=== PATIENT | female | born 1970 ===

== ENCOUNTER 2017-02-22 10:28 | Observation (INO) | payer OTHER ==
[2017-02-22] MEDS ORDERED: Albuterol-Ipratrop 3 mg / 0.5 (3 ml) UD INH STA ×2 (11:42→20:33)
--- NOTE | 2017-02-22 11:44 | ED PDOC ---
HPI: SOB/CHF/COPD Time Seen by Provider: 02/22/17 10:32 Chief Complaint (Nursing): Shortness Of Breath History Per: Patient History/Exam Limitations: no limitations Onset/Duration Of Symptoms: Gradual Current Symptoms Are (Timing): Still Present Severity: Moderate Associated Symptoms: Productive Cough. denies: Fever, Chills, Chest Pain, Heart Racing, Leg/Calf Pain, Dizziness, Light-headedness, Anxiety Recently: Treated By A Physician (placed on amoxicillin) Additional Complaint(s): pt. into ER c/o SOB and productive cough x 1 week. states SOB has become worse since this morning. denies any chest pain. pt also states she has been having green nasal discharge. states she was seen by her pmd yesterday and started on amoxicillin. Past Medical History Reviewed: Historical Data, Nursing Documentation, Vital Signs Vital Signs: Last Vital Signs Temp 98.7 F 02/22/17 12:15 Pulse 80 02/22/17 12:15 Resp 19 02/22/17 12:15 BP 126/78 02/22/17 12:15 Pulse Ox 98 02/22/17 12:15 - Medical History PMH: Bronchitis, Chronic Kidney Disease - Family History Family History: States: Unknown Family Hx - Living Arrangements Living Arrangements: With Family - Social History Current smoker - smoking cessation education provided: No - Home Medications Home Medications: Ambulatory Orders Medication Instructions Recorded Amoxicillin [Amoxil 500 mg Cap] 500 mg PO TID 02/22/17 Atorvastatin [Lipitor] 20 mg PO DAILY 02/22/17 Ergocalciferol (Vitamin D2) 50,000 unit PO Q14D 02/22/17 [Vitamin D2] Iron Ps Cmplx/Vit B12/FA [Ferrex 1 cap PO HS 02/22/17 150 Forte Capsule] Multivitamin/Iron/Folic Acid 1 tab PO DAILY 02/22/17 [Centrum Complete Multivit Tab] Promethazine [Phenergan Syrup] 5 ml PO Q6H PRN 02/22/17 Spironolactone [Aldactone] 12.5 mg PO DAILY 02/22/17 - Allergies Allergies/Adverse Reactions: Allergies Allergy/AdvReac Type Severity Reaction Status Date / Time No Known Allergies Allergy Verified 02/22/17 10:32 Review of Systems ROS Statement: Except As Marked, All Systems Reviewed And Found Negative Constitutional: Negative for: Fever, Chills Cardiovascular: Negative for: Chest Pain, Palpitations Respiratory: Positive for: Cough, Shortness of Breath, Sputum (green). Negative for: SOB with Exertion, Wheezing Gastrointestinal: Negative for: Nausea, Vomiting, Abdominal Pain Skin: Negative for: Rash Neurological: Negative for: Weakness, Numbness Physical Exam - Reviewed Nursing Documentation Reviewed: Yes Vital Signs Reviewed: Yes - Physical Exam Appears: Positive for: Uncomfortable Head Exam: Positive for: ATRAUMATIC, NORMAL INSPECTION, NORMOCEPHALIC Eye Exam: Positive for: Normal appearance Neck: Positive for: Normal, Painless ROM, Supple Cardiovascular/Chest: Positive for: Regular Rate, Rhythm, Chest Non Tender. Negative for: Edema, Gallop, Murmur, Bradycardia, Tachycardia Respiratory: Positive for: Wheezing (mild scattered). Negative for: Decreased Breath Sounds, Accessory Muscle Use, Crackles, Rales, Rhonchi, Stridor, Respiratory Distress Pulses-Radial (L): 2+ Pulses-Radial (R): 2+ Gastrointestinal/Abdominal: Positive for: Normal Exam, Bowel Sounds, Soft. Negative for: Tenderness Extremity: Positive for: Normal ROM. Negative for: Tenderness, Pedal Edema, Calf Tenderness, Deformity, Swelling Neurologic/Psych: Positive for: Alert, wire weaver II-XII, Oriented, Mood/Affect (calm) . Negative for: Motor/Sensory Deficits, Facial Droop - Laboratory Results Result Diagrams: 02/22/17 11:56 02/22/17 11:56 - ECG O2 Sat by Pulse Oximetry: 99 Pulse Ox Interpretation: Normal - Radiology X-Ray Interpretation: Infiltrates (rml moderate institital changes nml cardiac and mediasitnum border) - Progress ED Course And Treament: vq scan low prob for pe. bridget ladmit to obs per Dr hernandez Re-evaluation Time: 15:00 Condition: Improved Disposition - Clinical Impression Clinical Impression: Chronic renal failure, Pneumonia - Patient ED Disposition Is Patient to be Admitted: Yes Counseled Patient/Family Regarding: Studies Performed, Diagnosis - Disposition Disposition Time: 15:00 Condition: STABLE Forms: [facility] (Amharic) - Pt Status Changed To: Hospital Disposition Of: Observation - POA Present On Arrival: None
[2017-02-22 12:00] LABS: BASO # 0.1 K/uL (0.0-0.2); BASO % 0.4 % (0.0-2.0); EOS # 0.3 K/uL (0.0-0.7); EOS % 2.1 % (0.0-4.0); HEMATOCRIT 35.4 % (34.0-47.0); LYMPH % 16.1 % (20.0-40.0); MEAN CELL VOLUME 84.3 fl (81.0-99.0); MEAN CORPUSCULAR HGB CONC 33.3 g/dL (33.0-37.0); MEAN PLATELET VOLUME 9.4 fl (7.2-11.7); MONO # 0.5 K/uL (0.0-0.8); MONO % 3.7 % (0.0-10.0); NEUT # 9.6 K/uL (1.8-7.0); NEUT % 77.7 % (50.0-75.0); RED CELL DISTRIBUTION WIDTH 14.5 % (11.5-14.5); WHITE BLOOD COUNT 12.4 K/uL (4.8-10.8)
[2017-02-22 12:11] LABS: ALB/GLOB RATIO 1.1 (1.0-2.1); ALKALINE PHOSPHATASE 104 U/L (38-126); ALT/SGPT 30 U/L (9-52); AST/SGOT 18 U/L (14-36); BILIRUBIN,TOTAL 0.5 mg/dl (0.2-1.3); BLOOD UREA NITROGEN 40 mg/dl (7-17); CALCIUM 9.3 mg/dL (8.4-10.2); CARBON DIOXIDE 20 mmol/L (22-30); CHLORIDE 108 mmol/L (98-107); GFR AFRICAN-AMERICAN 12; GLUCOSE,RANDOM 91 mg/dL (65-105); POTASSIUM 3.9 MMOL/L (3.6-5.0); SODIUM 139 mmol/l (132-148); TOTAL PROTEIN 7.7 G/DL (6.3-8.2)
--- NOTE | 2017-02-22 12:59 | RAD ---
HISTORY: sob COMPARISON: 08/19/2008 TECHNIQUE: Chest PA and lateral FINDINGS: LUNGS: No active pulmonary disease. PLEURA: No significant pleural effusion identified. No pneumothorax apparent. CARDIOVASCULAR: Normal. OSSEOUS STRUCTURES: No significant abnormalities. VISUALIZED UPPER ABDOMEN: Normal. OTHER FINDINGS: None. IMPRESSION: No active disease.
[2017-02-22] MEDS ORDERED: Azithromycin 500 MG IV IVPB ONE (16:35)
--- NOTE | 2017-02-22 16:59 | NM ---
COMPARISON: Not available TECHNIQUE: 40.0 mCi technetium 99-m DTPA aerosol. 5.0 mCI technetium 99-m MAA administered intravenously. FINDINGS: VENTILATION COMPONENT: Normal. PERFUSION COMPONENT: Normal. IMPRESSION: Lowprobability ventilation perfusion scan for pulmonary embolism.
[2017-02-22] MEDS ORDERED: Sodium Chloride 3% for Inhalation 4 ML VIAL.NEB IH PRN (20:16)
[2017-02-22] MEDS ORDERED: methylPREDNISolone 40 MG in Sodium Chloride 0.9% 50 ML IVPB ONE (21:00)
[2017-02-22] MEDS: Promethazine 12.5 mg/10 ml Syrup PO PRN (23:07)
[2017-02-23] MEDS: Albuterol-Ipratrop 3 mg / 0.5 (3 ml) UD INH SCH ×3 (01:18→13:50)
[2017-02-23 06:24] LABS: HEMATOCRIT 35.9 % (34.0-47.0); MEAN CELL VOLUME 85.7 fl (81.0-99.0); MEAN CORPUSCULAR HGB CONC 32.7 g/dL (33.0-37.0); RED CELL DISTRIBUTION WIDTH 14.3 % (11.5-14.5); WHITE BLOOD COUNT 9.9 K/uL (4.8-10.8)
[2017-02-23 06:30] LABS: CALCIUM 9.8 mg/dL (8.4-10.2); POTASSIUM 4.3 MMOL/L (3.6-5.0)
[2017-02-23] MEDS ORDERED: Albuterol-Ipratrop 3 mg / 0.5 (3 ml) UD INH SCH (08:00)
[2017-02-23] MEDS ORDERED: Azithromycin 500 MG in Sodium Chloride 0.9% 250 ML IVPB SCH (09:00)
--- NOTE | 2017-02-23 09:17 | CP.PCM.DIS ---
Provider - Provider Date of Admission: 02/22/17 16:45 Attending physician: Selvin Camejo MD Time Spent in preparation of Discharge (in minutes): 35 Diagnosis - Discharge Diagnosis (1) Bronchitis Status: Acute (2) Asthma Status: Acute (3) Chronic renal failure Status: Acute Hospital Course - Lab Results Lab Results: Most Recent Lab Values WBC 9.9 K/uL (4.8-10.8) 02/23/17 05:15 RBC 4.19 Mil/uL (3.80-5.20) 02/23/17 05:15 Hgb 11.7 g/dL (12.0-16.0) L 02/23/17 05:15 Hct 35.9 % (34.0-47.0) 02/23/17 05:15 MCV 85.7 fl (81.0-99.0) 02/23/17 05:15 MCH 28.0 pg (27.0-31.0) 02/23/17 05:15 MCHC 32.7 g/dL (33.0-37.0) L 02/23/17 05:15 RDW 14.3 % (11.5-14.5) 02/23/17 05:15 Plt Count 210 K/uL (130-400) 02/23/17 05:15 MPV 9.4 fl (7.2-11.7) 02/22/17 11:56 Neut % (Auto) 77.7 % (50.0-75.0) H 02/22/17 11:56 Lymph % (Auto) 16.1 % (20.0-40.0) L 02/22/17 11:56 [place] % (Auto) 3.7 % (0.0-10.0) 02/22/17 11:56 Eos % (Auto) 2.1 % (0.0-4.0) 02/22/17 11:56 Baso % (Auto) 0.4 % (0.0-2.0) 02/22/17 11:56 Neut # 9.6 K/uL (1.8-7.0) H 02/22/17 11:56 Lymph # 2.0 K/uL (1.0-4.3) 02/22/17 11:56 [place] # 0.5 K/uL (0.0-0.8) 02/22/17 11:56 Eos # 0.3 K/uL (0.0-0.7) 02/22/17 11:56 Baso # 0.1 K/uL (0.0-0.2) 02/22/17 11:56 D-Dimer, Quantitative 375 ng/mlDDU (0-230) H 02/22/17 11:56 Sodium 143 mmol/l (132-148) 02/23/17 05:15 Potassium 4.3 MMOL/L (3.6-5.0) 02/23/17 05:15 Chloride 109 mmol/L (98-107) H 02/23/17 05:15 Carbon Dioxide 20 mmol/L (22-30) L 02/23/17 05:15 Anion Gap 18 (10-20) 02/23/17 05:15 BUN 40 mg/dl (7-17) H 02/23/17 05:15 Creatinine 4.9 mg/dL (0.7-1.2) H 02/23/17 05:15 Est GFR ( Amer) 12 02/23/17 05:15 Est GFR (Non-Af Amer) 10 02/23/17 05:15 Random Glucose 175 mg/dL (65-105) H 02/23/17 05:15 Lactic Acid 0.9 MMOL/L (0.7-2.1) 02/22/17 12:45 Calcium 9.8 mg/dL (8.4-10.2) 02/23/17 05:15 Total Bilirubin 0.5 mg/dl (0.2-1.3) 02/22/17 11:56 AST 18 U/L (14-36) 02/22/17 11:56 ALT 30 U/L (9-52) 02/22/17 11:56 Alkaline Phosphatase 104 U/L (38-126) 02/22/17 11:56 Troponin I < 0.0120 ng/mL (0.00-0.120) 02/22/17 11:56 NT-Pro-B Natriuret Pep 52.7 pg/ml (0-450) 02/22/17 11:56 Total Protein 7.7 G/DL (6.3-8.2) 02/22/17 11:56 Albumin 4.0 g/dL (3.5-5.0) 02/22/17 11:56 Globulin 3.7 gm/dL (2.2-3.9) 02/22/17 11:56 Albumin/Globulin Ratio 1.1 (1.0-2.1) 02/22/17 11:56 - Hospital Course Hospital Course: SOB AND COUGH IMPROVED Discharge Exam - Head Exam Head Exam: ATRAUMATIC, NORMAL INSPECTION, NORMOCEPHALIC - Eye Exam Eye Exam: EOMI, Normal appearance, PERRL Pupil Exam: NORMAL ACCOMODATION, PERRL - GI/Abdominal Exam GI & Abdominal Exam: Normal Bowel Sounds - Rectal Exam Rectal Exam: NORMAL INSPECTION - Neurological Exam Neurological exam: Alert, CN II-XII Intact, Normal Gait, Oriented x3, Reflexes Normal - Psychiatric Exam Psychiatric exam: Normal Affect, Normal Mood - Skin Skin Exam: Dry, Intact, Normal Color, Warm Discharge Plan - Follow Up Plan Condition: STABLE Disposition: HOME/ ROUTINE Patient education suggested?: Yes Additional Instructions: D/C HOME TODAY
[2017-02-23] MEDS: Promethazine 12.5 mg/10 ml Syrup PO PRN (09:22)
[2017-02-23] MEDS ORDERED: methylPREDNISolone 60 MG in Sodium Chloride 0.9% 50 ML IV ONE (09:45)
--- NOTE | 2017-02-23 11:53 | HP ---
HISTORY OF PRESENT ILLNESS: The patient is a 46-year-old female who was admitted via the emergency room because of shortness of breath, exercise intolerance, wheezing and cough for the past 1 week prior to presentation associated with production of greenish sputum and greenish nasal discharge. She has returned from vacation recently and became sick, was seen in the office and placed on amoxicillin and Symbicort, but symptoms worsened. She therefore sought help in the emergency room. PAST MEDICAL HISTORY: Remarkable for chronic kidney disease and asthmatic bronchitis. FAMILY HISTORY: Noncontributory. SOCIAL HISTORY: She does not drink or smoke and works as a nurse at [employer]. PHYSICAL EXAMINATION: GENERAL: The patient is alert and oriented, appears to be much more comfortable this morning after receiving IV antibiotics and IV steroids and aerosol as bronchodilators. VITAL SIGNS: Blood pressure 126/78, pulse of 80, respiratory rate of 19, she is afebrile and O2 sat 98% on 2 L nasal cannula. SKIN: Shows fair turgor. HEENT: Pupils are equal and reactive to light and accommodation. Mouth shows fair hygiene. NECK: JVP flat. LUNGS: Fair aeration with mild end-expiratory wheezing. HEART: S1, S2. ABDOMEN: Soft, nontender, no organomegaly. BREASTS: Normal. EXTREMITIES: Show no edema or cyanosis. RECTAL AND GENITAL: Unremarkable. CENTRAL NERVOUS SYSTEM: Grossly intact. LABORATORY DATA: Already reviewed. Chest x-ray shows no acute cardiopulmonary pathology. V/Q scan of the lungs shows low probability for pulmonary emboli. IMPRESSION: Acute asthma, acute bronchitis and chronic renal failure. PLAN: Intravenous steroids, intravenous antibiotics, aerosol as bronchodilators and oxygen. The patient will be discharged home today to follow up with supervisor orchard as an outpatient and also with Dr. Camejo. She will remain on Biaxin 500 mg twice a day, Medrol Dosepak, antitussives as needed and aerosolized albuterol. Selvin Camejo MD
[2017-02-23 15:40] VITALS: BP 125/69; PULSE 81; RESP 18; TEMP 97.9; O2SAT 97
== END 2017-02-23 16:30 | disposition home or self-care (01) ==
LOC: H.ER 10:28 → H.ERHOLD 16:45 → H.PEDS 18:13
PROVIDERS: ADMIT Internal Medicine Pulmonary Disease; ATTEND Internal Medicine Pulmonary Disease
DX: J40 Bronchitis, not specified as acute or chronic (principal); N18.9 Chronic kidney disease, unspecified; J45.909 Unspecified asthma, uncomplicated
CPT/HCPCS: 36415; 71020; 78582; 80048; 80053; 81025; 83605; 83880; 84484; 85025; 85027; 85378; 87040; 94150; 94640; 99285; A9567; G0378; J0456; J0696; J2920